=== PATIENT | female | born 1970 | race Two or more races ===

== ENCOUNTER 2025-07-16 03:44 | Emergency (ER) | payer BC, SELFPAY ==
[2025-07-16 03:45] VITALS: BP 145/91
[2025-07-16 04:11] VITALS: BMI 28.2
[2025-07-16 04:18] VITALS: BP 113/52
--- NOTE | 2025-07-16 04:30 | ED.GENMED ---
History of Present Illness
General
Chief Complaint: Urinary Symptoms
Source: patient
Exam Limitations: none
Time Seen by Provider: 07/16/25 03:59
History of Present Illness
History of Present Illness:
This is a 55 year-old female with a past medical history of diabetes, hypertension, he presents to the emergency department today with concerns of blood in her urine. Patient reports that the past day, she started to notice a little bit of blood in
her urine. As the day progressed, the urine became darker and there appeared to be more blood. She later notice a blood clot with urination. e recently started jardiance And was worn by her primary care provider to watch out for UTI symptoms.
Patient then sir you have a lot of frequency with urination and know that she was running to the bathroom every few minutes. She done developed a burning sensation with urination and intermittent pelvic discomfort. She denies abdominal pain, flank
pain , nausea, vomiting . She's never had this before. She denies fevers or chills. She denies chest pain. She does not currently follow with a urologist.
Review of Systems
Review of Systems
All Other Systems: ROS reviewed and negative except as documented in HPI and ROS
Phy Exam
General Physical Exam
General Presentation: well appearing and no apparent distress
General age: appears stated age
General Skin: warm and dry
General Habitus: normal
General Mental: alert
General Hydration: appears well hydrated
Cardiovascular Exam
Cardiovascular Exam: regular rate/rhythm and no murmur
Gastrointestinal Exam
Gastrointestinal Exam: normal bowel sounds, non tender, soft, no pulsatile mass, non distended and no cva tenderness
Skin Exam
Skin Exam: normal color and warm/dry
Psychiatric Exam
Psychiatric Exam: normal mood/affect
Sepsis
Sepsis Screening
Sepsis Assessment: Sepsis Ruled Out
Sepsis Screen
Sepsis Screen: Sepsis Ruled Out
Date: 07/16/25
Time: 09:37
Course
Orders/Labs/Results
Orders:
Orders
07/16/25 04:20
Complete Blood Count/With Diff Urgent
Comprehensive Metabolic Panel Urgent
Manual Differential Urgent
Comment: ADD ON
Urinalysis Reflex To Culture Urgent
Date Specimen was Collected: 07/16/25
Time Specimen was Collected: 03:58
Urine Microscopic Reflex Cult Urgent
Urine Culture Urgent
KEN Source: U
Specimen Description:
Date Specimen was Collected: 07/16/25
Time Specimen was Collected: 03:58
07/16/25 05:09
0.9% Sodium Chloride 250 ml [Nss] 250 ml IV BOLUS
07/16/25 05:46
Cephalexin Monohydrate [Keflex] 500 mg PO NOW STA
Abnormal Lab Results
07/16/25
04:20
WBC 12.2 H 10^3/uL
(4.8-10.8)
RBC 5.42 H 10^6/uL
(4.20-5.40)
Hgb 10.9 L g/dL
(12.0-16.0)
Hct 35.7 L %
(37.0-47.0)
MCV 65.9 L fL
(81.0-99.0)
MCH 20.1 L pg
(27.0-31.0)
MCHC 30.5 L g/dL
(33.0-37.0)
RDW 16.3 H %
(11.5-14.5)
Abs Neuts (Manual) 9.3 H 10^3/uL
(1.4-6.5)
Segmented Neutrophils 77 H %
(42-75)
BUN 19 H mg/dl
(7-17)
Glucose 264 H mg/dl
(70-99)
Ur Occult Blood Reflex 4+ A
(Negative)
Leukocyte Esterase Rfl 3+ A
(Negative)
Urine RBC >100 A /HPF
(0-2)
Urine WBC (Reflex) 16-20 A /HPF
(0-5)
Urine Bacteria (Reflex) Few A
(Negative)
Urine Glucose 4+ A
(Negative)
Urine Albumin (Reflex) 4+ A
(Neg - Trace)
07/16/25 04:20
07/16/25 04:20
Vital Signs
Initial and Last Documented VS:
Initial Vital Signs
Temp Pulse Resp BP Pulse Ox
97.8 F 95 18 145/91 99
07/16/25 03:45 07/16/25 03:45 07/16/25 03:45 07/16/25 03:45 07/16/25 03:45
Last Documented Vital Signs
Temp Pulse Resp BP Pulse Ox
98.0 F 95 18 115/71 96
07/16/25 04:16 07/16/25 03:45 07/16/25 03:45 07/16/25 06:00 07/16/25 06:00
MDM/Problems Addressed
Differential Diagnosis Includes:
uti, kidney stone, renal stone, malignancy, glomerulonephritis
MDM/Problems Addressed:
55-year-old female with a past medical history of diabetes , hypertension, presents to the ER today with concerns of gross hematuria As well as urinary frequency and dysuria. Of note, she just started jardiance. I'm physical exam patient as well
appearing in no distress. She has no abdominal tenderness. She has no CVA tenderness. She feels well at this time. Reviewed case with ED attending. Because she has no pain, no fever, will hold off on imaging at this time. Labs reviewed mild
leukocytosis and mild anemia noted. No labs for comparison. CMP shows elevated BUN, she was given IV fluids. Your analysis shows 3+ leukocytes as well as multiple white blood cells and feed bacteria. Suspect acute urinary tract infection. Patient
subsequently use the bathroom in the ER and noted her urine to appear electrical unit rebuilder than previously. Patient will be sore on Keflex ex and will call urology to make an appointment for a follow up. Patient is stable for discharge. Discussed strict return
precautions.
Chronic conditions affecting care: DM and HTN
Acute Exacerbation and/or Progression of Chronic Illness: DM
*Pulse Oximetry
SaO2: 99
Oxygen Mode of Delivery: Room air
Patient hypoxic: no
*Critical Care Note
Total Time (30-74mins, 75-104mins- exclusive of procedures): Not Applicable
ED Attending Note
-
Portions of this chart may have been created with voice recognition software.� Occasional wrong word or��sound alike� substitutions may have occurred due to the inherent limitations of voice recognition software.
Discharge Plan
Departure
Patient Disposition: Home (Routine Discharge)
Date of Disposition: 07/16/25
Time of Disposition: 05:54
Patient with high blood pressure during this ER visit?: No
Condition: Good
Discharge Problem:
Urinary tract infection
Instructions: Urinary Tract Infection, Adult (DC), Blood in the Urine (Hematuria), Adult (DC), BLOOD PRESSURE
Prescriptions:
New
cephalexin 500 mg capsule
500 mg PO BID 7 Days Qty: 14 0RF
phenazopyridine 200 mg tablet
200 mg PO TID Qty: 6 0RF
Referrals:
Scott Soto MD [Active, Urology] - Call in 1-3 days for appt
UNKNOWN - PT DOES,NOT KNOW [Family Provider]
Activity Restrictions/Additional Instructions:
Antibiotics has been sent to your pharmacy. Please take one tablet twice daily for 7 days.
Please call the attached number to schedule appointment with urology.
For the burning with urination, you can take one phenazopyridine tablet up to 3 times daily for 2 days.
PLEASE RETURN TO THE ER SHOULD YOU DEVELOP FLANK PAIN, BACK PAIN, FEVERS OR CHILLS, ABDOMINAL PAIN, NAUSEA OR VOMITING, FEVERS, CHEST PAIN, SHORTNESS OF BREATH, OR ANY OTHER SIGNS OR SYMPTOMS WORRISOME TO YOU.
Interventions
Interventions:
*Risk Screen - Suicide Last Done: 07/16/25 03:51
*General Assessment Last Done: 07/16/25 04:11
*Neglect/Abuse Screening Last Done: 07/16/25 03:51
*ED- Fall Risk Assessment Last Done: 07/16/25 04:11
*ED COVID-19 Vaccine History Last Done: 07/16/25 04:11
*Nursing Disposition Last Done: 07/16/25 06:33
ED-Female Genitourinary Assessment Last Done: 07/16/25 04:11
Discharge Date and Time
Discharge Date/Time: 07/16/25 06:33
Print Language: ALB[place]
[2025-07-16 04:40] LABS: Urine Character Bloody (Clear)
[2025-07-16 04:45] LABS: Hematocrit 35.7 % (37.0-47.0); Hemoglobin 10.9 g/dL (12.0-16.0); Mean Corp Hgb Conc. 30.5 g/dL (33.0-37.0); Mean Corpuscular Volume 65.9 fL (81.0-99.0); Platelet Count 239 10^3/uL (130-400); Red Cell Dist. Width 16.3 % (11.5-14.5)
[2025-07-16 04:51] LABS: Urine Red Blood Cell >100 /HPF (0-2); Urine White Cell 16-20 /HPF (0-5)
[2025-07-16 05:00] VITALS: BP 107/53
[2025-07-16 05:08] LABS: ALT (SGPT) 21 U/L (0-35); AST (SGOT) 20 U/L (14-36); Absolute Neutrophils -Man Diff 9.3 10^3/uL (1.4-6.5); Albumin 4.3 g/dl (3.5-5.0); Alkaline Phosphatase 58 U/L (38-126); Anisocytosis 1+; Basophilic Stippling 2+; Blood Urea Nitrogen 19 mg/dl (7-17); Calcium 9.3 mg/dl (8.4-10.2); Carbon Dioxide 27 mmol/L (22-30); Chloride 104 mmol/L (98-107); Estimated Creatinine Clearance 82 ml/min; Glucose 264 mg/dl (70-99); Microcytosis 3+; Normal RBC Morphology No; Ovalocytes 2+; Platelets Checked Yes; Potassium 4.2 mmol/L (3.5-5.1); Sodium 136 mmol/L (135-145); Total Cells Counted 100; Total Protein 6.7 g/dl (6.3-8.2); eGFR > 60.00
[2025-07-16] MEDS: NSS 250 IV (05:26)
[2025-07-16] MEDS: KEFLEX 500 MG PO (05:55)
[2025-07-16 06:00] VITALS: BP 115/71
== END 2025-07-16 06:33 | disposition home or self-care (01) ==
LOC: EMR 03:44
PROVIDERS: Physician Assistant; EMERGENCY PHYSICIAN Student in an Organized Health Care Education/Training Program
DX: N39.0 Urinary tract infection, site not specified (principal); R31.9 Hematuria, unspecified; E11.9 Type 2 diabetes mellitus without complications; I10 Essential (primary) hypertension; D64.9 Anemia, unspecified
CPT/HCPCS: 96360; 99284; 80053; 81003; 81015; 85025; 87077; 87086